=== PATIENT | female | born 1955 | race Caucasian/White ===

== ENCOUNTER 2018-05-23 03:46 | Emergency (ER) | payer OTHER ==
[~2018-05-23] VITALS: Ht 170.2 cm; Wt 100.0 kg
[2018-05-23 03:48] VITALS: BP 174/72
[2018-05-23] MEDS ORDERED: LEVO750T21 PO (04:09)
[2018-05-23] MEDS ORDERED: levoFLOXACIN 750MG TABLET PO ONE (04:10)
== END 2018-05-23 04:13 | disposition home or self-care (01) ==
LOC: ER 03:47
DX: R05 Cough (principal); Z88.5 Allergy status to narcotic agent; Z79.2 Long term (current) use of antibiotics
CPT/HCPCS: 99283